=== PATIENT | female | born 1955 | race Caucasian/White ===

== ENCOUNTER 2022-08-31 20:28 | Outpatient (CLI) | payer MEDICARE, OTHER | END 2022-09-01 06:17 | disposition home or self-care (01) | LOC: SLEEP 20:28 | PROVIDERS: ATTEND Otolaryngology Otolaryngology/Facial Plastic Surgery | DX: G47.33 Obstructive sleep apnea (adult) (pediatric) (principal) | CPT/HCPCS: 95810 ==